=== PATIENT | male | born 1970 | race Caucasian/White ===

== ENCOUNTER 2019-02-10 11:41 | Emergency (ER) | payer OTHER, SELFPAY ==
[2019-02-10 11:44] VITALS: BP 122/93; PULSE 64; RESP 16; TEMP 36.7; O2SAT 95
--- NOTE | 2019-02-10 12:00 | ED.GENADUL_ITS ---
Discharge Plan Disposition Patient Disposition: HOME Condition: Improving Discharge Details Chief Complaint: Nk/Back Pain Clinical Impression: Left flank pain Primary Care Provider: Pancho Sheikh ED Provider: Jordan Callahan Home Meds and New Rx's Prescriptions: No Action No Known Home Meds RF: 0 Discharge Instructions Instructions: Flank Pain (ED) Additional Instructions: We will refer you to urology for follow-up as we discussed. Please call the clinic [phone] for an appointment time. Remove Lidoderm patch in 12 hours time. Return if you develop a rash, fever, or any other acute concerns. Medical Decision Making 48-year-old male presents from home complaining of days of intermittent episodes of left flank/posterior thoracic discomfort that is intermittent and colicky. Associated with urge to urinate, incomplete voiding. He arrives afebrile, well-appearing, unremarkable vital signs 95 to 96% sat on room air. Differential diagnosis includes renal colic, thoracic strain. Patient with trace blood in his urine. CBC and comprehensive panel otherwise unremarkable. He is noted to have mild dehydration. Referred for CT scan which does not reveal radiopaque urinary tract calculi. There is dense material within the bladder which may be clotted blood. There is a low density structure dependently which is nonspecific but cystoscopy recommended. Patient will note urinary hesitancy over weeks to months time. He is not in significant distress at this time and his work-up was otherwise unrevealing. I feel he stable for discharge home but will refer to urology for outpatient evaluation. He understands homecare and well is return precautions. We will try Lidoderm patch for possible underlying thoracic strain. He understands to remove this in 12 hours time. Lab Data Lab results reviewed: Yes I reviewed the patient's lab results. Labs: Laboratory Results - last 24 hr 02/10/19 02/10/19 02/10/19 12:08 12:08 12:55 WBC 7.30 RBC 4.92 Hgb 14.9 Hct 43.9 MCV 89.2 MCH 30.3 MCHC 33.9 RDW 13.1 Plt Count 322 MPV 9.0 Immature Gran % 0.1 Neutrophils % 62.5 Lymphocytes % 26.0 Monocytes % 8.2 Eosinophils % 2.5 Basophils % 0.7 Absolute Neutrophils 4.56 Absolute Lymphocytes 1.90 Absolute Monocytes 0.60 Absolute Eosinophils 0.18 Absolute Basophils 0.05 Sodium 142 Potassium 3.8 Chloride 104 Carbon Dioxide 30.3 Anion Gap 7.7 BUN 15 Creatinine 0.91 Estimated GFR/1.73 m2 >= 60.00 Glucose 90 Calcium 8.8 Total Bilirubin 1.1 H AST 19 ALT 33 Alkaline Phosphatase 48 Total Protein 7.6 Albumin 3.8 Urine Color Pushpa Urine Clarity Clear Urine pH 5.5 Ur Specific Crary >= 1.030 H Urine Protein Negative Urine Ketones Negative Urine Blood Small H Urine Nitrite Negative Urine Bilirubin Negative Urine Urobilinogen 0.2 Ur Leukocyte Esterase Negative Urine RBC 0-2 Urine WBC Negative Ur Epithelial Cells Rare Urine Crystals Negative Urine Bacteria Negative Urine Casts Negative Urine Mucus Heavy Urine Other Few renal Ur Culture Indicated? No Urine Glucose Negative HPI General Mode of arrival: ambulatory . Date/Time Provider Initiated Documentation: 02/10/19 11:51 . Limitations to Documentation: no limitations . Information obtained by: patient . History of Present Illness 48 year old M presents to the emergency department with the chief complaint of Left flank and posterior thoracic pain intermittently, described as mild and moderate, Quality is described as dull, and is localized to the chest, back and left. Patient reports no radiation. Patient started experiencing this day(s) and it has been intermittent. No relieving factors improve symptom(s), No exacerbating factors reported . Patient notes denies fever/chills, nausea/vomiting, shortness of breath and syncope. Patient did receive the following treatments prior to arrival, none Related Data Home Medications Medication Instructions Recorded Confirmed Unknown [No Known Home Meds] 02/10/19 02/10/19 Allergies Allergy/AdvReac Type Severity Reaction Status Date / Time No Known Allergies Allergy Unverified 02/10/19 11:48 General Stated Complaint: Nk/Back Pain BEHZAD: 3 Review of Systems Narrative: No prolonged immobilization or travel, no lower extremity swelling or pain. Frequent urination, incomplete voiding that he states is somewhat long- standing. 6 systems reviewed and otherwise negative [facility] Medical History Smoking (Acute) Surgical History History of left knee surgery (Acute) Social History Smoking/Tobacco Use Status: Current every day Tobacco Type: cigarettes Alcohol Intake: never Drug use: Socially Substance use type: marijuana Do you feel safe at home: Yes Do you feel safe in your relationship?: Yes Exam Narrative Exam Narrative: GEN: awake, alert, oriented 3. Pleasant, well groomed, interactive. HEAD: Normocephalic, atraumatic ENT: Mucous membranes moist, oropharynx unremarkable, External ear exam unremarkable EYES: PERRL, EOMI NECK: Full ROM, no DANI, no menigismus CHEST/RESP: Nontender, clear to auscultation bilateral, no wheeze/rhonchi/rales CARDIOVASCULAR: RRR, no murmur, rub andreia. 2+ Rad pulse bilateral ABDOMEN: Minimal left flank tenderness to percussion, no rash, otherwise soft, nontender, no mass. +Bowel sounds EXT: Full ROM, no edema, no rash Neuro: Grossly normal neurologic exam, conversant, interactive. Psych: Speech fluent, thoughts congruent, affect normal Course Vital Signs Vital signs: Vital Signs Temperature 36.7 C 02/10/19 11:44 Pulse 64 02/10/19 11:44 Respiratory Rate 16 02/10/19 11:44 Blood Pressure 122/93 H 02/10/19 11:44 Pulse Oximetry 95 02/10/19 11:44 Temperature 36.7 C 02/10/19 11:44 Pulse 64 02/10/19 11:44 Respiratory Rate 16 02/10/19 11:44 Respiratory Effort Non-Labored 02/10/19 11:48 Blood Pressure 122/93 H 02/10/19 11:44 Pulse Oximetry 95 02/10/19 11:44 Pain Level 7 02/10/19 11:44
[2019-02-10] MEDS: Normal Saline 1,000 ML 1000 ML IV (12:15)
[2019-02-10 12:18] LABS: Abs Immature Grans 0.01 k/cumm (0.0-0.09); Absolute Basophil Count 0.05 k/cumm (0.0-0.2); Absolute Eosinophil Count 0.18 k/cumm (0.0-0.7); Absolute Neutrophil Count 4.56 k/cumm (1.2-6.7); Basophils % 0.7; Eosinophils % 2.5; HCT 43.9 % (40.0-50.0); HGB 14.9 g/dL (13.5-17.5); Immature Grans % 0.1; Mean Corp. HGB Concentration 33.9 g/dL (32.0-36.0); Mean Corpuscular Hemoglobin 30.3 pg (27.0-33.0); Mean Corpuscular Volume 89.2 fL (80-95); Monocytes % 8.2; Neutrophils % 62.5; Platelet Count 322 x1000/uL (130-400); RBC 4.92 m/cumm (4.50-6.00); RBC Distribution Width 13.1 % (11.8-14.1)
[2019-02-10 12:29] LABS: ALT 33 U/L (16-63); AST 19 U/L (15-37); Albumin 3.8 g/dL (3.4-5.0); Alkaline Phosphatase 48 U/L (46-116); Anion Gap 7.7 mmol/L (3-11); BUN 15 mg/dL (7-18); Bilirubin, Total 1.1 mg/dL (0.2-1.0); CO2 30.3 mmol/L (21.0-32.0); CREATININE 0.91 mg/dL (0.70-1.30); Calcium 8.8 mg/dL (8.5-10.1); Chloride 104 mmol/L (98-107); Glucose 90 mg/dL (70-100); Potassium 3.8 mmol/L (3.5-5.1); Sodium 142 mmol/L (136-145); Total Protein 7.6 g/dL (6.4-8.2)
[2019-02-10 13:10] LABS: Bilirubin Negative (Negative); Blood Small (Negative); Clarity Clear (Clear); Glucose Negative (Negative); Ketones Negative (Negative); Leukocyte Esterase Negative (Negative); Nitrite Negative (Negative); Specific Gravity >= 1.030 (1.005-1.025); Urobilinogen 0.2 EU/dL (Up TO 0.2); pH 5.5 (5-8)
--- NOTE | 2019-02-10 13:13 | DI.CT_ITS ---
EXAM: CT RENAL COLIC WO CLINICAL HISTORY: L flank pain hematuria COMPARISON: No exams were available for comparison FINDINGS: The lack of IV contrast does limit evaluation of the abdominal and pelvic organs. The visualized daly g bases are clear. The unenhanced visualized portions of the liver, spleen, pancreas, gallbladder, a nd bile ducts are unremarkable. The adrenal glands are unremarkable. There is no evidence of nephro lithiasis or ureterolithiasis. No obstructive uropathy is present. There are densities seen in the base of the urinary bladder. There is also a low-density structure seen inferiorly within the bladde r. It measures 1.7 cm x 1.4 cm. The prostate gland is mildly enlarged. The abdominal aorta is of n ormal caliber. There is mild atherosclerosis present. No evidence of an aneurysm is seen. No signi ficant abdominal or pelvic adenopathy, fluid, or free air is noted. The bowel shows no evidence of o bstruction or inflammation. No findings to suggest an acute appendicitis are present. Degenerative changes are present in the spine. Incidental note is made of a duodenal diverticulum adjacent to the pancreatic head. IMPRESSION: 1. No evidence of nephrolithiasis, ureterolithiasis, or obstructive uropathy. 2. Dense material seen within the bladder base. This may be related to the patient's history of georgiana turia. Low-density structure in the base of the urinary bladder. This is nonspecific. Urologic con sult is recommended. Cystoscopy should be considered.
[2019-02-10 13:24] LABS: Bacteria Negative HPF (Negative); C & S Indicated? No; Casts Negative LPF (Negative); Crystals Negative HPF (Negative); Epithelial Cells Rare HPF (Negative); Mucus Heavy (Negative); Other Cells Few Renal (Negative); RBC 0-2 (0-2); WBC Negative HPF (0-5)
--- NOTE | 2019-02-10 14:36 | DI.VRAD_ITS ---
PROCEDURE INFORMATION: Exam: CT Abdomen And Pelvis Without Contrast Exam date and time: 02/10/2019 1:14 PM Clinical history: 48 years old, male; Other: L flank pain hematuria TECHNIQUE: Imaging protocol: Computed tomography of the abdomen and pelvis without contrast. Radiation optimization: All CT scans at this facility use at least one of these dose optimization techniques: automated exposure control; mA and/or kV adjustment per patient size (includes targeted exams where dose is matched to clinical indication); or iterative reconstruction. COMPARISON: No relevant prior studies available. FINDINGS: Lungs: No significant airspace consolidation at the lung bases. Pleural effusion is not seen. Liver: No focal intrahepatic abnormality on this noncontrast enhanced exam. Gallbladder and bile ducts: No definite calcified gallstones, gallbladder wall thickening or pericholecystic fluid. No evidence of biliary ductal dilatation. Pancreas: Pancreas is unremarkable. Spleen: Spleen is not enlarged. Adrenals: Adrenals are unremarkable Kidneys and ureters: There are no radiopaque urinary tract calculi. There is no evidence of hydronephrosis. There is no evidence of a discrete renal cortical mass on this noncontrast enhanced exam. Stomach and bowel: Nonopacified loops of bowel are unremarkable. There is no evidence of bowel obstruction, mass or pneumatosis. Appendix: There are no findings to suggest acute appendicitis. Intraperitoneal space: No free fluid focal collections or free intraperitoneal air. Vasculature: Vascular calcification is noted within the aorta which is non-aneurysmal. Lymph nodes: No significant adenopathy Bladder: The bladder is nondistended. Material within the bladder is dense which may be related to the history of hematuria. There is a low density structure noted inferiorly within the bladder. It measures approximately 17 x 14 mm in diameter on series 2 image 141. Reproductive: Prostate gland is mildly enlarged. Seminal vesicles are unremarkable Bones/joints: There is no acute or destructive bony abnormality identified. Soft tissues: Subcutaneous soft tissues are unremarkable IMPRESSION: 1. No radiopaque urinary tract calculi. No evidence of hydronephrosis. 2. Dense material within the bladder may be related to the stated history of hematuria. There is a low-density structure dependently within the bladder which is nonspecific but cystoscopic correlation is suggested to evaluate for the presence of bladder mass/neoplasm. Dictated and Authenticated by: Chuyita Smith MD. Ordering:MADALYN Ortega MD
[2019-02-10] MEDS: Lidocaine 5% Patch 1 PATCH TP (15:15)
[2019-02-10 15:25] VITALS: BP 135/90; PULSE 56; RESP 99; O2SAT 99
--- NOTE | 2019-02-11 02:05 | NUR.NOTE ---
Nursing Note: faxed referal to urology on 02/11/19
== END 2019-02-10 15:28 | disposition home or self-care (01) ==
PROVIDERS: Emergency Provider Emergency Medicine; PCP Family Medicine
DX: R10.9 Unspecified abdominal pain (principal)
CPT/HCPCS: 36415; 80053; 96360; 99284; 74176; 81003; 81015; 85025

== ENCOUNTER 2019-04-09 16:18 | Outpatient (REF) | payer SELFPAY ==
[2019-04-09 16:48] LABS: Bilirubin Negative (Negative); Blood Trace-lysed (Negative); Clarity Clear (Clear); Glucose Negative (Negative); Ketones Negative (Negative); Leukocyte Esterase Negative (Negative); Nitrite Negative (Negative); Urobilinogen 0.2 EU/dL (Up TO 0.2)
[2019-04-09 17:01] LABS: Bacteria Negative HPF (Negative); C & S Indicated? No; Crystals Negative HPF (Negative); Epithelial Cells Negative HPF (Negative); Mucus Negative (Negative); RBC 0-2 HPF (0-2); WBC Negative HPF (0-5)
== END 2019-04-09 16:38 ==
LOC: LBN 16:18
PROVIDERS: Visit Provider Nurse Practitioner Gerontology
DX: R31.9 Hematuria, unspecified (principal)
CPT/HCPCS: 81003; 81015

== ENCOUNTER 2019-10-10 10:44 | Outpatient (CLI) | payer SELFPAY ==
[2019-10-11 10:18] LABS: PSA, Screening 0.9 ng/mL (0.0-2.5)
== END 2019-10-10 11:04 ==
PROVIDERS: Visit Provider Nurse Practitioner Gerontology
DX: N40.1 Benign prostatic hyperplasia with lower urinary tract symptoms (principal); Z12.5 Encounter for screening for malignant neoplasm of prostate
CPT/HCPCS: 84153

== ENCOUNTER → 2020-04-03 15:20 | Outpatient (REF) | payer OTHER, SELFPAY ==
--- NOTE | 2020-04-03 08:30 | SKI_PTH ---
PATIENT: Yoni Chilel LOC: [facility]#:[id number] AGE/SX: 54/M ROOM: RE04/03/[address]: Angie Gasca : 1970 BED: DIS: SPEC #: [id number] RECD: 04/04/20 12:51 STATUS: JOHANN REGlen #: [id number] HELADIO: 04/03/20 08:[address]: Angie Gasca DEPT: Surgical Specimen RECD BY: Tracy Alanis ENTERED: 04/04/20 12:51 SP TYPE: SKI OTHR DR: Negra Khan Tissues: 1 - SKIN BIOPSY(SHAVE/PUNCH) Procedures: SKIN LEVEL 4 Comments: [id number]
[2020-04-03 21:44] LABS: ALT 47 U/L (16-63); AST 41 U/L (15-37)
[2020-04-03 22:16] LABS: Calculated LDL 144 mg/dL (<100); Cholesterol 218 mg/dL (<200); HDL Cholesterol 60 mg/dL (40-60); Triglyceride 70 mg/dL (<150)
== END ==
LOC: NCHCN 15:20
PROVIDERS: PCP Nurse Practitioner Family; Visit Provider Nurse Practitioner Family
DX: L82.1 Other seborrheic keratosis (principal)
CPT/HCPCS: 80061; 84450; 84460; 88305

== ENCOUNTER 2020-05-21 03:18 | Outpatient (CLI) | payer OTHER, SELFPAY ==
[2020-05-22 14:24] LABS: COVID-19 RT-PCR UVMMC Result Negative (Negative)
== END 2020-05-21 03:19 | disposition home or self-care (01) ==
PROVIDERS: PCP Nurse Practitioner Family; Visit Provider Nurse Practitioner Family
DX: Z20.822 Contact with and (suspected) exposure to COVID-19 (principal)
CPT/HCPCS: U0003

== ENCOUNTER 2020-06-24 15:19 | Outpatient (REF) | payer OTHER, SELFPAY ==
[2020-06-25 14:33] LABS: COVID-19 RT-PCR UVMMC Result Negative (Negative)
== END 2020-06-24 15:20 | disposition home or self-care (01) ==
LOC: NCHCN 15:19
PROVIDERS: PCP Nurse Practitioner Family; Visit Provider Nurse Practitioner Family
DX: Z20.822 Contact with and (suspected) exposure to COVID-19 (principal)
CPT/HCPCS: U0003

== ENCOUNTER 2020-07-11 02:30 | Outpatient (CLI) | payer OTHER, SELFPAY ==
[2020-07-11 09:15] LABS: Source Nasal/Nares
[2020-07-11 12:34] LABS: COVID-19 PCR Negative (Negative)
== END 2020-07-11 02:31 | disposition home or self-care (01) ==
LOC: LBO 02:30
PROVIDERS: PCP Nurse Practitioner Family; Visit Provider Surgery
DX: Z20.822 Contact with and (suspected) exposure to COVID-19 (principal); Z01.818 Encounter for other preprocedural examination
CPT/HCPCS: 87635

== ENCOUNTER 2020-07-14 07:16 | Day surgery (SDC) | payer OTHER, SELFPAY ==
--- NOTE | 2020-07-14 06:27 | W.COLOREPORT ---
Date of service: 07/14/20 Time of Service: 08:44 Colonoscopy Report Date of procedure: 07/14/20 Pre-op diagnosis general: Colon Cancer Screening Post-op diagnosis procedure note: other (multiple small polyps) Procedure: Colonoscopy with polypectomy Surgeon: Alessandra Seo Anesthesia Type: General:No Airway (ASA 3/Semaj Salcedo CRNA) Estimated blood loss (mL): 3 Pathology: other (Ascending polyp x2, transverse, descending x2 and sigmoid polyp) Complications: None Disposition: same day Indications: The patient is here for Colonoscopy pre-op. His last screening was in 2010 and was unremarkable. He has no family history of colon cancer. He has not had any bowel habit changes. -Discussed colonoscopy bowel prep as well as the procedure. Discussed possible complications of the procedure to include bleeding, pain, perforation, missed small lesion/polyp, sore throat, aspiration and adverse reaction to the medications. Questions were answered to patient?s satisfaction. No guarantees were implied or given. Prep: Miralax/Dulcolax Procedure Start Time: :44 Procedure End Time: 09:25 Retraction Time: 23 Findings: small polyps Procedure Description: After informed consent was obtained the patient was taken to the procedure room and placed in a left decubitous position. Monitors were applied and a time out was done. The patients name, date of , procedure, allergies to medications and metal in their body was reviewed. The patient was then sedated. Once sedated and comfortable a rectal exam was done. External exam was normal. Internal exam revealed a normal sphincter tone and no palpable masses. The prostate felt smooth. The scope was then introduced and retro-flexed. No internal hemorrhoids, polyps or masses were identified on retro-flexion. The scope was then advanced to the cecum without difficulty. The ileocecal vlave and appendiceal orifice were identified. The prep was adequate. The scope was then slowly retracted over 23 minutes back into the rectum. Polyps were removed with cold forceps in the ascending colon x2, transverse colon,descending colon x2 and sigmoid colon. There was no diverticulosis noted. The scope was removed and the patient was woken up and taken back to Same day surgery in stable condition. The patient tolerated the procedure well and there were no immediate complications. Follow up: The patient should follow up in 3-5 years unless they develop changes in bowel habits or other new gastrointestinal complaints.
--- NOTE | 2020-07-14 06:28 | W.PM.DSUDISC ---
Discharge Plan Disposition Patient Disposition: HOME Condition: Good Discharge Details Reason For Visit: Colon Cancer Screening Attending Provider: Alessandra Seo Primary Care Provider: Negra Khan Home Meds and New Rx's Prescriptions: Continued tamsulosin [Flomax] 0.4 mg capsule 0.4 mg PO DAILY Qty: 90 RF: 0 latanoprost 0.005 % drops 1 drp ophthalmic (eye) HS RF: 0 Discontinued polyethylene glycol 3350 17 gram/dose powder 238 g PO ONCE Qty: 238 RF: 0 bisacodyl [Dulcolax (bisacodyl)] 5 mg tablet,delayed release (DR/EC) 5 mg PO ONCE Qty: 4 RF: 0 Discharge Instructions Instructions: Colorectal Polyps (DC) Additional Instructions: Findings: multiple small polyps Follow up: 3-5 years Please call if you develop: fevers >101.5 Nausea or Vomiting Abdominal pain that is not transient DAY SURGERY UNIT POST ENDOSCOPY INSTRUCTIONS 1. Because there will be medication in your system for the next 24 hours, you may feel a little sleepy. Your coordination will be affected. Therefore: a. Do not drive or operate dangerous equipment for 24 hours. b. Do not drink alcohol beverages for 24 hours (not even beer). c. Plan to go home and rest for the day. 2. Generally there are no restrictions on your activity after a day or so has gone by, but you may feel a bit fatigued for a few days. 3 After you arrive home you may have a light meal and return to a normal diet as you can tolerate it without feeling sick to your stomach. 4. After surgery, you may feel pain or discomfort. This should be only transient, but if it persists please contact your doctor. 5. If there are any questions regarding the findings of your procedure, please feel free to contact your doctor. 6. If you are unable to contact your doctor with a problem, contact the hospital at [phone]. 7. Continue all your regular medications unless directed otherwise. I understand the above instructions and have no questions. Signature of Patient or Responsible Adult Escort Date/Time Name of Responsible Adult Escort Signature of Nurse Date/Time Activity:: Activity as Tolerated Diet:: As Tolerated Discharge Orders Discharge Orders: Discharge Order (Routine); Ordered 07/14/20 Ordered By: Alessandra Seo
[2020-07-14 07:27] VITALS: BP 122/93; PULSE 76; RESP 16; TEMP 36.9; O2SAT 94
[2020-07-14] MEDS: Lactated Ringers 1,000 ML 80 ML IV (07:53)
--- NOTE | 2020-07-14 09:10 | BOWEL_PTH ---
PATIENT: Yoni Chilel LOC: [facility] U#:[id number] AGE/SX: 49/M ROOM: RE07/14/[address]: Alessandra Seo MD : 1970 BED: DIS: 07/14/2020 SPEC #: [id number] RECD: 07/14/20 12:56 STATUS: JOHANN REQ #: [id number] HELADIO: 07/14/20 09:[address]: Alessandra Seo DEPT: Surgical Specimen RECD BY: Tracy Alanis ENTERED: 07/14/20 12:58 SP TYPE: Bowel OTHR DR: Negra Khan Tissues: 1 - BIOPSY BOWEL 2 - BIOPSY BOWEL 3 - BIOPSY BOWEL 4 - BIOPSY BOWEL Procedures: GROSS AND MICRO LEVEL 4 Comments: [id number]
[2020-07-14 09:52] VITALS: BP 129/91; PULSE 69; RESP 16; TEMP 36.6; O2SAT 96
== END 2020-07-14 10:10 | disposition home or self-care (01) ==
LOC: SUR 07:18
PROVIDERS: PCP Nurse Practitioner Family; Visit Provider Surgery
PROC: 0DJD8ZZ Inspection of Lower Intestinal Tract, Via Natural or Artificial Opening Endoscopic (ICD-10-PCS; CPT 45378; principal; 2020-07-14 08:45)
DX: Z12.11 Encounter for screening for malignant neoplasm of colon (principal); D12.2 Benign neoplasm of ascending colon; D12.3 Benign neoplasm of transverse colon; D12.4 Benign neoplasm of descending colon
CPT/HCPCS: 45380; 88305; J2001

== ENCOUNTER 2023-07-05 13:23 | Outpatient (REF) | payer OTHER, SELFPAY | END 2023-07-05 13:24 | disposition home or self-care (01) | LOC: LBN 13:23 | PROVIDERS: PCP Nurse Practitioner Family; Visit Provider Nurse Practitioner Family | DX: R49.8 Other voice and resonance disorders (principal); R09.89 Other specified symptoms and signs involving the circulatory and respiratory systems | CPT/HCPCS: 87070 ==

== ENCOUNTER 2023-12-16 16:42 | Outpatient (REF) | payer OTHER, SELFPAY ==
[2023-12-16 14:49] LABS: Bacteria Negative HPF (Negative); C & S Indicated? No; Casts Negative LPF (Negative); Crystals Negative HPF (Negative); Epithelial Cells Rare HPF (Negative); Mucus Negative (Negative); RBC 0-2 HPF (0-2); WBC Negative HPF (0-5)
[2023-12-16 15:05] LABS: HCT 46.9 % (40.0-50.0); HGB 15.6 g/dL (13.5-17.5); MCH 30.4 pg (27.0-33.0); MCHC 33.3 % (32.0-36.0); MCV 91 fL (80-95); MPV 9.7 fL (8.0-11.0); Platelet Count 284 10^3/uL (130-400); RBC 5.14 10^6/uL (4.36-5.78); RDW-SD 43.8 fL
[2023-12-16 15:29] LABS: ALT 43 U/L (16-63); AST 24 U/L (15-37); Alkaline Phosphatase 58 U/L (46-116); Anion Gap 7.8 mmol/L (3-11); BUN 16 mg/dL (7-18); Bilirubin, Total 0.94 mg/dL (0.2-1.0); CO2 29.2 mmol/L (21.0-32.0); CREATININE 0.9 mg/dL (0.70-1.30); Calcium 9.3 mg/dL (8.5-10.1); Calculated LDL 182 mg/dL (<100); Chloride 106 mmol/L (98-107); Cholesterol 264 mg/dL (<200); Estimated GFR 101.49 (mL/min/1.73m2); Glucose 100 mg/dL (74-106); HDL Cholesterol 67 mg/dL (40-60); Potassium 4.3 mmol/L (3.5-5.1); Sodium 143 mmol/L (136-145); Total Protein 7.4 g/dL (6.4-8.2); Triglyceride 76 mg/dL (<150)
[2023-12-16 22:37] LABS: PSA, Screening 1.1 ng/mL (<=3.5)
== END 2023-12-16 16:43 | disposition home or self-care (01) ==
LOC: NCHCN 16:42
PROVIDERS: PCP Nurse Practitioner Family; Visit Provider Nurse Practitioner Family
DX: Z12.5 Encounter for screening for malignant neoplasm of prostate (principal); R39.15 Urgency of urination; Z00.00 Encounter for general adult medical examination without abnormal findings
CPT/HCPCS: 80053; 80061; 84153; 85027; 81015